=== PATIENT | male | born 1970 | race Caucasian/White ===

== ENCOUNTER → 2017-03-15 | Outpatient (CLI) | payer MEDICARE ==
--- NOTE | 2017-03-15 21:13 | CONS ---
CONSULTATION Consultation done for sleep apnea. A 46-year-old, obese male patient coming with loud snoring, witnessed apneas, sleep fragmentation, excessive hypersomnia and sleepiness. The patient sleeps most of the time during the day and he is sleeping for excessive number of hours and he is feeling that this problem has become worse over this past year or so. He goes to bed around 2:00 a.m., wakes up at 1:00 p.m. in the afternoon. Despite that, he feels tired and sleepy and he is having difficult memory concentration and keeping himself awake. His weight has been fluctuating and his current BMI is 40.5. He has a thick neck and I do have a high suspicion that he may have an underlying obstructive sleep apnea. His current [place] score is 15. He cannot drive long distances because of concerns of falling asleep. No alcohol drinking. No substance abuse. He is on Social Security disability due to back injury many years back. PAST MEDICAL HISTORY: Obesity, chronic back pain related to a work-related injury, degenerative arthritis. PAST SURGICAL HISTORY: Includes left hip surgery/ORIF, right wrist carpal tunnel release. DRUG ALLERGIES: Not known. OUTPATIENT MEDICATION: Includes: 1. Grant. 2. Adipex and. 3. He is also on a blood pressure medication, cannot recall exactly. FAMILY HISTORY: Mother has obstructive sleep apnea. SOCIAL HISTORY: The patient smokes 1 pack of cigarettes a day. No history of alcohol. No history of IV drugs. He is and is living with his 25-year-old boy in the house. REVIEW OF SYSTEMS: A 12-point review of system was done. Positive findings are mentioned above in the history of present illness. Of significance is absence of any insomnia. No grinding of the teeth. No sleepwalking or sleep talking. No restlessness in lower extremities. No anxiety or claustrophobia or sexual dysfunction. No history of depression. He has occasional heartburn at nighttime. BP is 151/98, pulse 86, respirations 16, temperature 97.6, saturation 96% on room air. BMI is 40.5. Actual weight is 342. Height is 6 feet 5 inches and neck size 19-1/2 inches. GENERAL APPEARANCE: Calm, comfortable, obese. HEENT: Short neck. Mallampati class IV. No goiter or neck masses. LUNGS: Clear to auscultation. HEART: Sounds regular rate and rhythm. Normal S1, S2. No S3, S4. No murmurs. ABDOMEN: Soft, nontender. No organomegaly. EXTREMITIES: No edema. No cyanosis or clubbing. NEUROLOGIC: The patient is alert and oriented x3. He has no focal neurological deficits. PSYCHIATRICALLY: No anxiety or depression. IMPRESSION: 1. Obstructive sleep apnea clinically suspected and there is a high suspicion for the patient to have obstructive sleep apnea, needs immediate evaluation and workup and treatment. 2. Obesity, body mass index of 40.7. 3. Chronic hypersomnia. [place] score of 15. 4. Chronic pain. 5. Hypertension. PLAN: 1. Proceed with immediate screening polysomnogram. 2. Avoid driving, especially when feeling drowsy or sleepy. 3. Weight loss. 4. Optimize sleep hygiene measures. 5. Will continue to follow and make further recommendations based on his progress and findings. CRISTO / ADDYN: [id number] /
== END | disposition home or self-care (01) ==
LOC: SLEEP 16:04
PROVIDERS: ATTEND Internal Medicine Critical Care Medicine
DX: G47.33 Obstructive sleep apnea (adult) (pediatric) (principal); G47.10 Hypersomnia, unspecified; E66.9 Obesity, unspecified; I10 Essential (primary) hypertension; G89.29 Other chronic pain; Z68.41 Body mass index [BMI] 40.0-44.9, adult
CPT/HCPCS: 99204; 99211

== ENCOUNTER → 2017-07-19 | Outpatient (CLI) | payer MEDICARE ==
--- NOTE | 2017-07-19 20:04 | PN ---
PROGRESS NOTE This is a 47-year-old male patient coming in to see me in followup regarding his obstructive sleep apnea. The patient was diagnosed having severe AYUSH with an AHI of 65.8. He was quite symptomatic and he was offered CPAP therapy at a pressure of 16 cm of water. Today the patient is coming in for a compliancy check. He reports marked improvement in sleep quality. He is benefitting from the CPAP treatment and he is waking up much more alert and awake during the day. Sleep quality is improved in general. He is utilizing his CPAP pressure of 16 cm of water. His compliancy indicates that he has been averaging around 4.8 hours of CPAP use every night. His CPAP use for more than 4 hours, is 66% and his leak factor is 4 L/minute and his AHI is down to 7. He has no complaints. He is benefitting from treatment. He is utilizing a large-sized Simplus full-face mask, and he has no major complaints for now. REVIEW OF SYSTEMS: 12-point review of system was done. Positive findings are mentioned above in the history of present illness. No recent weight gain or weight loss. No fever, chills or night sweats. No snoring while on CPAP therapy. No sinus disease. No cough, sputum production, or shortness of breath. No nausea, vomiting, diarrhea, or abdominal pain. No dysuria, frequency or urgency. No falls. No change of mental status. No focal neurological deficit. BP is 139/87, pulse 74, respirations 16, temperature is 97.6, [place] score 3, weight is 235. GENERAL APPEARANCE: Calm, comfortable. Head is atraumatic, normocephalic. Neck is short, supple. There is no goiter or neck masses. LUNGS: Diminished breath sounds bilaterally especially lung bases. HEART: Sounds regular rhythm. Normal S1, S2. No S3, S4. No murmurs. ABDOMEN: Soft, nontender. No organomegaly. EXTREMITIES: No edema. No cyanosis or clubbing. NEUROLOGIC: Alert and oriented x3. There is no focal neurological deficit. PSYCHIATRICALLY: There was no anxiety or depression. IMPRESSION: Severe symptomatic obstructive sleep apnea with an AHI of 65.8, currently on CPAP with a pressure of 16 cm of water. The patient is benefiting from the treatment. The patient is very compliant. PLAN: 1. Encourage weight loss. 2. Hypersomnia improved. 3. Sleep quality is improved. 4. Increased average hours of CPAP use per night and we need to achieve more than 5 hours at least. 5. See me back in a year's time. His treatment has been successful for now. MMODL / IJN: [id number] /
== END | disposition home or self-care (01) ==
LOC: SLEEP 15:09
PROVIDERS: ATTEND Internal Medicine Critical Care Medicine
DX: G47.33 Obstructive sleep apnea (adult) (pediatric) (principal); Z99.89 Dependence on other enabling machines and devices